=== PATIENT | female | born 1960 | race Caucasian/White ===

== ENCOUNTER 2016-11-15 12:59 | Emergency (ER) | payer OTHER ==
[~2016-11-15] VITALS: Ht 170.2 cm; Wt 93.3 kg
[~2016-11-15 12:59] MED LIST: ERGO1CAP35 PO; GLC500 PO; GLIM2TAB2 PO; LORA-741 PO; LPT/40 PO; LSN/10125 PO; OXYC7.5T65 PO
[2016-11-15 13:01] VITALS: TEMP 36.6; Ht 170.2 cm; Wt 93.3 kg
[2016-11-15] MEDS ORDERED: ONDANSETRON INJ 2 MG/ML 2 ML VIAL IV STA (13:20)
[2016-11-15] MEDS ORDERED: KETOROLAC TROMETHAMINE 30 MG/ML VIAL IV STA (13:20)
[2016-11-15] MEDS ORDERED: GLIM4TAB2 PO (13:37)
[2016-11-15] MEDS ORDERED: LSN40 PO (13:37)
[2016-11-15 13:45] LABS: BASO % 0.4 %; BASO ABS # 0.05 K/uL (0-0.2); COMPLETE YES; EOS % 2.1 %; HEMATOCRIT 41.2 % (37-47); IG% 0.2 %; LYMPH % 28.5 %; LYMPH ABS # 3.36 K/uL (1.2-3.4); MEAN CELL VOLUME 85.8 fL (80-100); MEAN CORPUSCULAR HEMOGLOBIN 29.2 pg (25-34); MEAN PLATELET VOLUME 10.7 fL (7.4-10.4); MONO % 6.7 %; NEUT % 62.1 %; PLATELET COUNT 232 K/uL (130-400); WHITE BLOOD COUNT 11.79 K/uL (4.8-10.8)
--- NOTE | 2016-11-15 13:52 | DIAGNOSTIC IMAGING REPORT ---
CHEST ONE VIEW PORTABLE CLINICAL HISTORY: CHEST PAIN dyspnea COMPARISON STUDY: 09/24/2012 FINDINGS: Small parenchymal infiltrate right base. Lungs otherwise appear clear. No evidence for cardiac enlargement. Diaphragms are smooth. IMPRESSION: Small parenchymal infiltrate right base The above report was generated using voice recognition software. It may contain grammatical, syntax or spelling errors. Electronically signed by: Ryne Ardon M.D. 11/15/2016 1:50 PM Dictated Date/Time: 11/15/2016 1:50 PM
[2016-11-15 13:56] LABS: POINT OF CARE TROPONIN I < 0.030 ng/ml (0-0.045)
[2016-11-15 14:05] LABS: ALT/SGPT 25 U/L (12-78); BLOOD UREA NITROGEN 10 mg/dl (7-18); BUN/CREATININE RATIO 10.3 (10-20); CALCIUM 9.5 mg/dl (8.5-10.1); CARBON DIOXIDE 28 mmol/L (21-32); CHLORIDE 103 mmol/L (98-107); GLUCOSE 137 mg/dl (70-99); POTASSIUM 4.1 mmol/L (3.5-5.1); SODIUM 138 mmol/L (136-145)
[2016-11-15 14:08] LABS: ALKALINE PHOSPHATASE 87 U/L (45-117); AST/SGOT 12 U/L (15-37)
[2016-11-15 14:26] LABS: URINE APPEARANCE CLEAR (CLEAR); URINE BILIRUBIN NEG (NEG); URINE COLOR YELLOW; URINE EPITHELIAL CELL AUTO >30 /lpf (0-5); URINE NITRITE POS (NEG); URINE SPECIFIC GRAVITY 1.008 (1.000-1.030); UROBILINOGEN NEG (NEG)
[2016-11-15 14:34] LABS: MANUAL MICROSCOPIC REQUIRED? NO; REVIEW REQ? NO
[2016-11-15] MEDS ORDERED: MoRPHine SULFATE 4 MG/ML 1 ML CARP\\VIAL IV STA (14:35)
[2016-11-15] MEDS ORDERED: MoRPHine SULFATE 4 MG/ML 1 ML CARP\\VIAL ONE (14:41)
--- NOTE | 2016-11-15 15:49 | DIAGNOSTIC IMAGING REPORT ---
ABD/PELVIS WITHOUT FOR STONE CT DOSE: 1576.76 mGy.cm HISTORY: Flank pain eval for stone TECHNIQUE: Multiaxial CT images of the abdomen and pelvis were performed without the use of intravenous and oral contrast according to the standard department stone protocol. COMPARISON STUDY: 07/11/2008 FINDINGS: Minimal dependent atelectasis of the lungs. 1.3 cm right adrenal nodule suggesting lipid poor adenoma. General configuration of liver spleen and pancreas is unremarkable. Several renal vascular calcifications are present. No renal parenchymal calcifications are seen. There are several pelvic vascular calcifications. There are no definite calcifications identified within the urinary tracts. The bowel pattern is considered nonobstructive. The appendix is identified and appears to be normal. Bowel pattern again is nonobstructive throughout. IMPRESSION: No acute process of the abdomen or pelvis The above report was generated using voice recognition software. It may contain grammatical, syntax or spelling errors. Electronically signed by: Ryne Ardon M.D. 11/15/2016 3:48 PM Dictated Date/Time: 11/15/2016 3:43 PM
[2016-11-15 16:29] VITALS: BP 166/99; PULSE 63; O2SAT 94
--- NOTE | 2016-11-15 16:52 | EMERGENCY ROOM VISIT NOTE ---
History Report prepared by Romina: Christiano Hernandez Under the Supervision of: Dr. Román Espinoza M.D. First contact with patient: 13:07 Chief Complaint: ABDOMINAL PAIN Stated Complaint: ABD PAIN, SIDE PAIN, NAUSEOUS Nursing Triage Summary: Pt reports pain under left breast x 3 days, pain now shooting up back and shoulder blade. Pain is worse today. Nausea. Pt states, "It feels like there is something stuck in there." History of Present Illness The patient is a 56 year old female who presents to the Emergency Room with complaints of persistent "burning" left flank pain beginning three days ago. She states that her hernández began in her left abdomen and moved to her flank. She states that her pain radiates up into her left shoulder. The patient states that stretching improves her pain. Nothing worsens her pain. She also complains of a cough and nausea. The patient denies any known fevers, urinary symptoms, or chest pain. She states that she has been having cold-sweats and hot-flashes as well. She has a history of abdominal surgery as a child and feels that her pain may be related to this. Source of History: patient Onset: three days ago Position: other (left flank) Quality: burning Timing: other (persistent) Associated Symptoms: + cough, + nausea, No fevers, No chest pain, No urinary symptoms Review of Systems See HPI for pertinent positives & negatives. A total of 10 systems reviewed and were otherwise negative. Past Medical & Surgical Medical Problems: (1) DIAB W NEURO MANIFEST, TYPE II OR UNSPEC TYPE, NOT UNCNTRLD (2) ESOPHAGEAL STRICTURE (3) HYPERTENSION NOS Old medical records were reviewed. Nurse's notes were reviewed and I agree with. Family History Diabetes mellitus Hypertension Seizures Social History Smoking Status: Current Every Day Smoker Alcohol Use: none Drug Use: none Marital Status: single Housing Status: lives with family Occupation Status: unemployed, disabled Current/Historical Medications Scheduled Glimepiride (Glimepiride), 4 MG PO BID Lisinopril (Lisinopril), 40 MG PO DAILY Metformin Hcl (Glucophage *), 1,000 MG PO BIDM Scheduled PRN Oxycodone Immediate Rel Tab (Roxicodone Ir), 1-2 TAB PO Q4H PRN for Severe Pain Oxycodone/Acetaminophen 7.5MG/325MG (Percocet 7.5MG/325MG), 1 TAB PO Q6 PRN for Pain Allergies Coded Allergies: Penicillins (Verified Allergy, Mild, RASH, 09/24/12) Latex (Verified Allergy, Unknown, rash, 11/15/16) Physical Exam Vital Signs Date Time Temp Pulse Resp B/P (MAP) Pulse Ox O2 Delivery O2 Flow Rate FiO2 11/15/16 16:29 63 16 166/99 94 Room Air 11/15/16 15:44 57 16 134/75 95 Room Air 11/15/16 14:03 66 16 112/72 93 Room Air 11/15/16 13:01 36.6 70 18 181/91 98 Room Air Physical Exam General: Non-ill appearing middle aged female in no acute distress HEENT: Normal cephalic atraumatic. Pupils are equal round and reactive to light. Extraocular movements are intact. Oropharynx is pink with moist mucous membranes. No swelling of the mouth lips or tongue. Neck: Supple with a midline trachea. No meningeal signs or stiffness, no JVD or bruits. No Stridor. Chest: Clear to auscultation bilaterally. No wheezes or rhonchi. No increased work of breathing. Tender to palpation of the left lower ribs. Heart: regular rate and rhythm. Abdomen: Soft nontender, nondistended without rebound guarding or rigidity. Scars from previous surgeries. Extremities: No cyanosis clubbing or edema. No calf tenderness or assymetry Spine/Back. Non tender to palpation. No CVA tenderness Skin: Good turgor without rashes. Neurologic exam: Cranial nerves two through 12 are intact. Motor and sensation are intact and symmetrical throughout. Medical Decision & Procedures ER Provider Diagnostic Interpretation: Radiology results as stated below per my review and radiologist interpretation: CHEST ONE VIEW PORTABLE FINDINGS: Small parenchymal infiltrate right base. Lungs otherwise appear clear. No evidence for cardiac enlargement. Diaphragms are smooth. IMPRESSION: Small parenchymal infiltrate right base The above report was generated using voice recognition software. It may contain grammatical, syntax or spelling errors. Electronically signed by: Ryne Ardon M.D. ABD/PELVIS WITHOUT FOR STONE FINDINGS: Minimal dependent atelectasis of the lungs. 1.3 cm right adrenal nodule suggesting lipid poor adenoma. General configuration of liver spleen and pancreas is unremarkable. Several renal vascular calcifications are present. No renal parenchymal calcifications are seen. There are several pelvic vascular calcifications. There are no definite calcifications identified within the urinary tracts. The bowel pattern is considered nonobstructive. The appendix is identified and appears to be normal. Bowel pattern again is nonobstructive throughout. IMPRESSION: No acute process of the abdomen or pelvis The above report was generated using voice recognition software. It may contain grammatical, syntax or spelling errors. Electronically signed by: Ryne Ardon M.D. Laboratory Results 11/15/16 13:30 Red Blood Count 4.80, Mean Corpuscular Volume 85.8, Mean Corpuscular Hemoglobin 29.2, Mean Corpuscular Hemoglobin Concent 34.0, Mean Platelet Volume 10.7, Neutrophils (%) (Auto) 62.1, Lymphocytes (%) (Auto) 28.5, Monocytes (%) (Auto) 6.7, Eosinophils (%) (Auto) 2.1, Basophils (%) (Auto) 0.4, Neutrophils # (Auto) 7.32, Lymphocytes # (Auto) 3.36, Monocytes # (Auto) 0.79, Eosinophils # (Auto) 0.25, Basophils # (Auto) 0.05 11/15/16 13:30 Test 11/15/16 13:30 11/15/16 13:36 11/15/16 14:10 White Blood Count 11.79 K/uL (4.8-10.8) Red Blood Count 4.80 M/uL (4.2-5.4) Hemoglobin 14.0 g/dL (12.0-16.0) Hematocrit 41.2 % (37-47) Mean Corpuscular Volume 85.8 fL (80-100) Mean Corpuscular Hemoglobin 29.2 pg (25-34) Mean Corpuscular Hemoglobin Concent 34.0 g/dl (32-36) Platelet Count 232 K/uL (130-400) Mean Platelet Volume 10.7 fL (7.4-10.4) Neutrophils (%) (Auto) 62.1 % Lymphocytes (%) (Auto) 28.5 % Monocytes (%) (Auto) 6.7 % Eosinophils (%) (Auto) 2.1 % Basophils (%) (Auto) 0.4 % Neutrophils # (Auto) 7.32 K/uL (1.4-6.5) Lymphocytes # (Auto) 3.36 K/uL (1.2-3.4) Monocytes # (Auto) 0.79 K/uL (0.11-0.59) Eosinophils # (Auto) 0.25 K/uL (0-0.5) Basophils # (Auto) 0.05 K/uL (0-0.2) RDW Standard Deviation 41.6 fL (36.4-46.3) RDW Coefficient of Variation 13.2 % (11.5-14.5) Immature Granulocyte % (Auto) 0.2 % Immature Granulocyte # (Auto) 0.02 K/uL (0.00-0.02) Anion Gap 7.0 mmol/L (3-11) Est Creatinine Clear Calc Drug Dose 75.4 ml/min Estimated GFR () 74.0 Estimated GFR (Non- 63.8 BUN/Creatinine Ratio 10.3 (10-20) Calcium Level 9.5 mg/dl (8.5-10.1) Total Bilirubin 0.6 mg/dl (0.2-1) Direct Bilirubin < 0.1 mg/dl (0-0.2) Aspartate Amino Transf (AST/SGOT) 12 U/L (15-37) Alanine Aminotransferase (ALT/SGPT) 25 U/L (12-78) Alkaline Phosphatase 87 U/L (45-117) Total Protein 8.1 gm/dl (6.4-8.2) Albumin 4.0 gm/dl (3.4-5.0) Lipase 136 U/L (73-393) Bedside D-Dimer 182 ng/mlFEU (0-450) Bedside Troponin I < 0.030 ng/ml (0-0.045) Urine Color YELLOW Urine Appearance CLEAR (CLEAR) Urine pH 7.0 (4.5-7.5) Urine Specific [place] 1.008 (1.000-1.030) Urine Protein NEG (NEG) Urine Glucose (UA) NEG (NEG) Urine Ketones NEG (NEG) Urine Occult Blood NEG (NEG) Urine Nitrite POS (NEG) Urine Bilirubin NEG (NEG) Urine Urobilinogen NEG (NEG) Urine Leukocyte Esterase TRACE (NEG) Urine WBC (Auto) 5-10 /hpf (0-5) Urine RBC (Auto) 0-4 /hpf (0-4) Urine Hyaline Casts (Auto) 1-5 /lpf (0-5) Urine Epithelial Cells (Auto) >30 /lpf (0-5) Urine Bacteria (Auto) 3+ (NEG) Laboratory studies as stated above per my review. Medications Administered Medications (Trade) Dose Ordered Sig/Pepito Route Start Time Stop Time Status Last Admin Dose Admin Ketorolac Tromethamine (Toradol Inj) 30 mg NOW STAT IV 11/15/16 13:20 11/15/16 13:22 DC 11/15/16 13:56 30 MG Ondansetron HCl (Zofran Inj) 4 mg NOW STAT IV 11/15/16 13:20 11/15/16 13:22 DC 11/15/16 13:56 4 MG Morphine Sulfate (MoRPHine SULFATE INJ) 4 mg NOW STAT IV 11/15/16 14:35 11/15/16 14:40 DC 11/15/16 14:43 4 MG ECG Indication: abdominal pain Rate (beats per minute): 57 Rhythm: sinus bradycardia Findings: no acute ischemic change, no ectopy, other (Low voltage) Comparison ECG Date: August 16, 2015 Change: QT interval has shortened. ED Course 1314: Past medical records reviewed. The patient was evaluated in room A3, and a complete history and physical examination were performed. 1320: Ordered Zofran Inj 4 mg IV, Toradol Inj 30 mg IV. 1435: I checked in on the patient. She is still having pain. Ordered Morphine Sulfate 4 mg IV. 1640: Upon reevaluation, the patient is resting comfortably. I discussed the results and treatment plan with her. She verbalized agreement of the treatment plan. The patient was discharged home. Medical Decision Differentials include, but are not limited to; costochondritis, pneumothorax, shingles, PE, intraabdominal process, cardiac disease and electrolyte or metabolic abnormality. Medication reconciliation: I have personally reviewed the patient's medication list. Hypertension screening: The patient was found to have elevated blood pressure however I suspect this is related to her pain and situational. This patient comes in as described above, she's been having pain in her left lower chest left upper abdomen into the back. It is been going on for couple days. It does seem to be worse with movement. She's had no shortness of breath. She looks well on exam. I do not see any rash or any findings to suggest shingles. She does described as more of a burning pain. IV access was established was given Toradol 30 mg IV. Her daughter is here and is driving. She was also given Zofran 4 mg IV. She had mild relief with this but ultimately other required morphine IV and is feeling a lot better. Chest x-ray does not show any pulmonary process or anything in the base along on that side. She has no significant elevation of her white count or fever to suggest infection. She's had no acute electrolyte or metabolic abnormalities. She has nothing to suggest liver, gallbladder or pancreas disease. She's had no fall or trauma. I did do a d-dimer and it was within normal limits and therefore in a low pretest probability said this makes PE highly unlikely. I did a CAT scan of her abdomen and there is no kidney stone or obstruction or any other acute pathology. She does have a history of having abdominal surgery and tells me she 's had adhesions but there is no evidence to suggest bowel obstruction. Clinically on exam she is more tender in the lower ribs rather than the abdomen. This may be more of a musculoskeletal/costochondritis type picture. She feels good and would like to go home. I think this is reasonable to close follow-up. She should use ibuprofen for pain. For breakthrough pain, I did give her small prescription for OxyIR 5 mg that she can use one or 2 pills every 4-6 hours as needed. She was warned that this could make her drowsy, do not take before drinking, driving, working. She should return if: Worsening of symptoms, fever or now or should I wait chills, any new problems concerns. She was happy with the plan and was discharged home with her daughter driving. Impression Primary Impression: Left sided chest pain Scribe Attestation The scribe's documentation has been prepared under my direction and personally reviewed by me in its entirety. I confirm that the note above accurately reflects all work, treatment, procedures, and medical decision making performed by me. Departure Information Dispostion Home / Self-Care Prescriptions Oxycodone Immediate Rel Tab (ROXICODONE IR) 5 Mg Tab 1-2 TAB PO Q4H Y for Severe Pain, #24 TAB Prov: Román Espinoza M.D. 11/15/16 Referrals No Doctor, Assigned (PCP) Forms Call Back Authorization, HOME CARE DOCUMENTATION FORM, IMPORTANT VISIT INFORMATION Patient Instructions My [facility] Additional Instructions Rest Drink plenty of fluids Return if: worsening of symptoms, increasing pain, fever chills, shortness of breath, any new problems or concerns. Chest active BB milligrams, take with food
[2016-11-15] MEDS ORDERED: OXYC1TAB3 PO (16:53)
--- NOTE | 2016-11-16 12:28 | Pharmacy Progress Note ---
ED Pharmacist Progress Note Date of Service: Nov 16, 2016. Phone call transferred to me bye ED inserter operator. Patient called stating someone had called her today asking her to call the ED back. I had not called this patient. I did review notes to determine if someone had called her today requesting her to call. I could not find documentation of such. I asked the patient if she was expecting test results or some other reason for f/u phone call. She stated she was not expecting a call and that she had been told her test results while in the ER.
--- NOTE | 2016-11-17 18:42 | Pharmacy Progress Note ---
ED Pharmacist Culture FollowUp Date of Service: Nov 17, 2016. Patient's urine cx grew e coli > 100,000 CFU/mL. Patient's case reviewed with Dr Espinoza. He requested I call Rx in for Bactrim DS 1 PO BID x 7 days. I spoke with the patient and explained cx results. She asked Rx be called to [facility] on [facility] ([phone]) which I did.
== END 2016-11-15 16:57 | disposition home or self-care (01) ==
LOC: C.EDB 13:00 → C.EDA 16:57
DX: R07.9 Chest pain, unspecified (principal); E11.9 Type 2 diabetes mellitus without complications; I10 Essential (primary) hypertension; Z83.3 Family history of diabetes mellitus; Z82.49 Family history of ischemic heart disease and other diseases of the circulatory system; Z82.0 Family history of epilepsy and other diseases of the nervous system; F17.210 Nicotine dependence, cigarettes, uncomplicated; Z79.899 Other long term (current) drug therapy